=== PATIENT | male | born 1980 | race Caucasian/White ===

== ENCOUNTER 2024-12-12 19:13 | Emergency (ER) | payer SELFPAY ==
[2024-12-12 19:24] VITALS: BP 124/81; PULSE 88; RESP 16; TEMP 36.9; O2SAT 98; BMI 24.8
[2024-12-12 19:40] VITALS: BP 130/90; PULSE 87; O2SAT 94
--- NOTE | 2024-12-12 19:49 | ED_ITS ---
HPI - Eye Problem General: Chief complaint: Eye Problems Stated complaint: left eye lost bottom vision Time Seen by Provider: 12/12/24 19:31 Source: patient Mode of arrival: ambulatory Limitations: no limitations History of Present Illness: Patient is a 44-year-old male who presents the emergency department complaining of visual change gradually over the past couple of days but worsening today while working outside. Reports a history of retinal detachment in his right eye, notes that this seems to be similar. He notes that it seemed like a curtain was coming up over his left eye he has lost vision to the lower hemisphere. States that it feels like a glob is blocking his vision, however vision in the upper quadrants of his eye has remained unchanged. Denies any pain. Also reports a history of TIA when he was 17 years old, he is not reporting any other neurological symptoms at this time. No recent medication changes. No tearing or discharge from his eyes. No redness. He does note to me a history of bilateral cataract repair when he was in his 20s. MD chief complaint: vision change Onset (ago): day(s) Onset description: gradual Duration: constant and progressively worsening Location: left eye Eye Symptoms: decreased vision Mechanism: other (Occurred while exerting himself) Associated symptoms: Denies fever(s), headache(s), nausea, neck pain or vomiting Treatments Prior to Arrival: none Related Data Allergies Allergy/AdvReac Type Severity Reaction Status Date / Time No Known Allergies Allergy Verified 12/12/24 19:29 Review of Systems General: Reports: 10 or more systems reviewed and unremarkable except in HPI and below Const: Denies: fever(s), chills or fatigue Eyes: Reports: change in vision and blind spots; Denies: eye discomfort, eye discharge or eye redness ENMT: Denies: throat pain, ear or mastoid pain or nasal discharge Card: Denies: chest pain, palpitations, swelling of feet/ankles or lightheadedness Resp: Denies: dyspnea, productive cough or wheezing GI: Denies: abdominal pain, nausea, vomiting, diarrhea or constipation Musc: Denies: neck pain, back pain or joint pain Skin/Breast: Denies: rash Neuro: Denies: headache(s), numbness in extremities or weakness in extremities Physical Exam Const: COMMON NORMALS: no acute distress, patient oriented x3, no limitations and alert GENERAL APPEARANCE: cooperative ORIENTATION/CONSCIOUSNESS: Yes awake HENMT: COMMON NORMALS: normocephalic and atraumatic HEAD & SCALP: normocephalic and atraumatic Eye: COMMON NORMALS: Equal, round and reactive pupils present, EOMs intact bilaterally and conjunctivae normal GENERAL EYE: normal light reflex VISUAL M[place]: Yes visual field cut by quadrant Visual field cut by quadrant: lower outer visual field cut: left and lower inner visual field cut: left PERIORBITAL: periorbital findings normal EYELID: eyelids normal CONJUNCTIVA: Yes conjunctivae normal PUPIL: Yes Equal, round and reactive pupils present DIRECT OPHTHALMOSCOPY: Yes normal light reflex and Yes retinal abnormality positive left retinal detachment Resp: COMMON NORMALS: normal respiratory effort, No use of accessory muscles and clear to auscultation bilaterally AUSCULTATION: clear to auscultation bilaterally Cardio: COMMON NORMALS: regular rate, regular rhythm, S1 normal heart sound present and S2 normal heart sound present RATE: regular rate RHYTHM: regular rhythm HEART SOUNDS: S1 normal heart sound present and S2 normal heart sound present Extremity: COMMON NORMALS: normal to inspection and full ROM Neuro: COMMON NORMALS: patient oriented x3, CN's II-XII intact bilaterally, moves all extremities, no focal motor deficits and no sensory deficits noted SENSORIUM/ORIENTATION: Yes alert Course Vital Signs: Vital signs: Vital Signs Temperature 98.5 F 12/12/24 19:24 Pulse Rate 87 12/12/24 19:40 Respiratory Rate 16 12/12/24 19:24 Blood Pressure 130/90 12/12/24 19:40 Pulse Oximetry 94 12/12/24 19:40 Oxygen Delivery Me thod Room Air 12/12/24 19:40 MDM - Eye Problem Medical Decision Making Patient has had gradual vision loss in left eye, comparing it to symptoms from a previous retinal detachment in his right eye. Neurologically was intact on physical exam I have no concern for stroke. On ophthalmology, there was clear retinal detachment and this was confirmed with bedside ultrasound. Dr. Lewis had spoken with Dr. Vazquez, billing coordinator who had recommended consulting [facility] ophthalmology group. I spoke with Dr. Lagos, billing coordinator at [facility], who had stated they will see the patient tomorrow at 10 AM and to make the patient n.p.o. after midnight. Directions and number to call was provided to the patient who agrees with this plan. All of the questions and concerns addressed. Dr. Lewis assisted with care of this patient and agrees with the disposition. No radiology studies performed this visit Discharge Plan Discharge Patient Disposition: Home Clinical Impression: Retinal detachment Qualifiers: Laterality: left Qualified Code(s): H33.22 - Serous retinal detachment, left eye Condition: Stable Discharge Orders: Discharge ED (Routine); Ordered 12/12/24 Ordered By: Wilfred Christensen Patient Instructions: Retinal Detachment Activity Restrictions/Additional Instructions: You are going to follow-up for surgical appointment at [address] Martinez. This is located at [facility] in [place], [place]. The address is [address] [place] [address]. Please no intake of food or drink after midnight. Call for any other questions. 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
[2024-12-12 20:19] VITALS: BP 133/84; PULSE 74; O2SAT 93
== END 2024-12-12 20:20 | disposition home or self-care (01) ==
PROVIDERS: Emergency Provider Physician Assistant
DX: H33.22 Serous retinal detachment, left eye (principal)
CPT/HCPCS: 99281

== ENCOUNTER 2024-12-26 20:41 | Emergency (ER) | payer BC, MEDICAID, SELFPAY ==
[2024-12-26 20:44] VITALS: BP 155/101; PULSE 82; RESP 18; TEMP 36.6; O2SAT 96; BMI 24.4
[2024-12-26] MEDS: oxymetazoline 0.05% Nasal Spray 15 mL 2 SPRAY NOSTRIL-B (21:14)
[2024-12-26 21:33] LABS: Basophils # 0.1 10^3/uL (0.0-0.1); Basophils % 1.3 %; Eosinophils # 0.2 10^3/uL (0.0-0.8); Eosinophils % 2.8 %; Hematocrit 43.2 % (37-53); Lymphocytes % 38.1 %; Mean Corpuscular HGB Conc 35.9 g/dL (30-55); Mean Corpuscular Hemoglobin 34.1 pg (27-33); Mean Corpuscular Volume 94.9 fl (82-101); Mean Platelet Volume 9.1 fL (7.4-10.4); Monocytes # 0.9 10^3/uL (0.2-0.9); Monocytes % 11.1 %; Neutrophils # 3.61 10^3/uL (1.8-7.7); Neutrophils % 46.6 %; Nucleated Red Blood Cells % 0 %; Platelet Count 213 10^3/cmm (157-399); Red Blood Count 4.55 10^6/uL (3.85-5.65); Red Cell Distribution Width 11.7 % (12.1-15.1); White Blood Count 7.75 10^3/uL (3.29-11.43)
--- NOTE | 2024-12-26 21:33 | ED_ITS ---
HPI - Epistaxis 2 General: Chief complaint: Epistaxis Stated complaint: 3 Bad nose bleed in an hour feeling weak Time Seen by Provider: 12/26/24 20:52 Source: patient Mode of arrival: ambulatory Limitations: no limitations History of Present Illness: Patient is a 44-year-old male presents the emergency department planing of epistaxis today. Notes 3 separate episodes of profuse nasal bleeding, no history of bleeding. Recently underwent retinal detachment surgery in his left eye, no other pertinent context. States he is also felt weak today, normally is out climbing trees but has been sleeping all day. No chest pain, shortness of breath, or other symptoms at this time. No reported sick contact exposure to viral illness. Vitals within normal limits at this time. He is not on a blood thinner. No nasal trauma or head trauma reported. States that he is unsure what nostril was bleeding due to the profuse nature of this. Denies feeling blood running down the back of his throat. No active bleeding at this time. Mildly hypertensive, does not report a history and does not take medications. MD complaint: epistaxis Onset (ago): hour(s) Duration: now resolved Associated symptoms: Deny fever(s), headache(s) or vomiting Treatment prior to arrival: nose pinching and stuffed nose with tissue Related Data Allergies Allergy/AdvReac Type Severity Reaction Status Date / Time No Known Allergies Allergy Verified 12/12/24 19:29 Review of Systems 2 General: Reports: 10 or more systems reviewed and unremarkable except in HPI and below Const: Denies: fever(s), chills or fatigue Eyes: Denies: change in vision ENMT: Reports: epistaxis; Denies: throat pain, ear or mastoid pain or nasal discharge Card: Denies: chest pain, palpitations, swelling of feet/ankles or lightheadedness Resp: Denies: dyspnea, productive cough or wheezing GI: Denies: abdominal pain, nausea, vomiting, diarrhea or constipation : Denies: flank pain, difficulty urinating, dysuria or urinary frequency Musc: Reports: muscle weakness; Denies: neck pain, back pain or joint pain Skin/Breast: Denies: rash Neuro: Denies: headache(s), numbness in extremities or weakness in extremities Physical Exam 2 Const: COMMON NORMALS: no acute distress, patient oriented x3 and no limitations GENERAL APPEARANCE: cooperative, comfortable and well developed ORIENTATION/CONSCIOUSNESS: Yes awake, Yes oriented to person, Yes oriented to place and Yes oriented to time HENMT: COMMON NORMALS: normocephalic, atraumatic and hearing grossly normal bilaterally HEAD & SCALP: normocephalic and atraumatic NOSE: Epistaxis present on the left dried blood present OTHER: No active epistaxis at this time. Evaluation of posterior oropharynx does not reveal any signs of bleeding. Eye: COMMON NORMALS: Equal, round and reactive pupils present, EOMs intact bilaterally and conjunctivae normal CONJUNCTIVA: Yes conjunctivae normal P UPIL: Yes Equal, round and reactive pupils present Neck/C-Spine: COMMON NORMALS: full ROM, supple and no JVD Resp: COMMON NORMALS: normal respiratory effort, No retractions, No use of accessory muscles and clear to auscultation bilaterally AUSCULTATION: clear to auscultation bilaterally Cardio: COMMON NORMALS: no JVD, regular rate, regular rhythm, No clicks present (Cardio), No murmurs present (Cardio) and No rub (Cardio) RATE: r egular rate RHYTHM: regular rhythm Extremity: COMMON NORMALS: normal to inspection, full ROM and capillary refill normal Neuro: COMMON NORMALS: patient oriented x3, moves all extremities, no focal motor deficits and no sensory deficits noted SENSORIUM/ORIENTATION: Yes oriented to person, Yes oriented to place and Yes oriented to time Skin: COMMON NORMALS: no rashes or lesions noted GENERAL SKIN EXAM: no rashes or lesions noted Course 2 Vital Signs: Vital signs: Vital Signs Temperature 97.9 F 12/26/24 20:44 Pulse Rate 82 12/26/24 20:44 Respiratory Rate 18 12/26/24 20:44 Blood Pressure 155/101 12/26/24 20:44 Pulse Oximetry 96 12/26/24 20:44 Oxygen Delivery Me thod Room Air 12/26/24 20:44 MDM - Epistaxis Medical Decision Making Patient presented with epistaxis today, controlled on arrival. Mildly hypertensive, rest of vitals within normal limits. Rest of his physical exam normal he did complain of some weakness going on since today. His lab work was normal. No bleeding throughout his stay here in the ED, Afrin was administered. Etiology for the weakness include allergies versus viral versus dehydration. He is comfortable with discharge home, return precautions given. Lab Data 12/26/24 21:26 12/26/24 21: Laboratory Results WBC 7.75 10^3/uL (3.29-11.43) 12/26/24 21: RBC 4.55 10^6/uL (3.85-5.65) 12/26/24 21: Hgb 15.50 g/dL (11.27-16.99) 12/26/24 21: Hct 43.2 % (37-53) 12/26/24 21: MCV 94.9 fl (82-101) 12/26/24 21: MCH 34.1 pg (27-33) H 12/26/24 21: MCHC 35.9 g/dL (30-55) 12/26/24: RDW 11.7 % (12.1-15.1) L 12/26/24: Plt Count 213 10^3/cmm (157-399) 12/26/24: MPV 9.1 fL (7.4-10.4) 12/26/24 21: Neut % (Auto) 46.6 % 12/26/24: Lymph % (Auto) 38.1 % 12/26/24: [place] % (Auto) 11.1 % 12/26/24: Eos % (Auto) 2.8 % 12/26/24: Baso % (Auto) 1.3 % 12/26/24: Neut # (Auto) 3.61 10^3/uL (1.8-7.7) 12/26/24: Lymph # (Auto) 3.0 10^3/uL (0.8-4.8) 12/26/24: [place] # (Auto) 0.9 10^3/uL (0.2-0.9) 12/26/24: Eos # (Auto) 0.2 10^3/uL (0.0-0.8) 12/26/24: Baso # (Auto) 0.1 10^3/uL (0.0-0.1) 12/26/24: Nucleated RBC % (auto) 0 % 12/26/24: Nucleated RBCs # 0.0 /100WBC 12/26/24 21: PT 12.30 SECONDS (12.1-14.9) 12/26/24 21: INR 0.85 (0.8-1.2) 12/26/24 21: Sodium 141 mmol/L (136-145) 12/26/24 21: Potassium 3.4 mmol/L (3.5-5.1) L 12/26/24 21: Chloride 103 mmol/L (98-107) 12/26/24 21: Carbon Dioxide 24 mmol/L (22-29) 12/26/24 21: Anion Gap 17.4 (5-19) 12/26/24 21: BUN 8 mg/dL (6-20) 12/26/24: Creatinine 0.9 mg/dL (0.7-1.2) 12/26/24: GFR Calculation 92.1 mL/min (90-130) 12/26/24: Glucose 104 mg/dL (65-115) 12/26/24: Calculated Osmolality 291 mOsm/kg (285-295) 12/26/24 21: Calcium 9.2 mg/dL (8.5-10.5) 12/26/24 21: Total Bilirubin 0.3 mg/dL (0.15-1.2) 12/26/24 21: AST 35 U/L (0-40) 12/26/24 21: ALT 23 U/L (0-41) 12/26/24 21: Alkaline Phosphatase 92 U/L (40-130) 12/26/24: Total Protein 7.4 g/dL (6.6-8.7) 12/26/24 21: Albumin 4.2 g/dL (3.5-5.2) 12/26/24 21: Globulin 3.2 g/dL (1.3-4.6) 12/26/24 21: No radiology studies performed this visit Discharge Plan Discharge Patient Disposition: Home Clinical Impression: Epistaxis Condition: Stable Discharge Orders: Discharge ED (Routine); Ordered 12/26/24 Ordered By: Wilfred Christensen Patient Instructions: Nosebleed (ED) Activity Restrictions/Additional Instructions: Afrin for nosebleeds. Apply pinching at the bridge of the nose with any further bleeding. Drink plenty of water. [id number] antihistamines. Follow-up with primary care and return with any new or worsening. 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
[2024-12-26 21:50] LABS: Alanine Aminotransferase 23 U/L (0-41); Albumin Level 4.2 g/dL (3.5-5.2); Alkaline Phosphatase 92 U/L (40-130); Anion Gap 17.4 (5-19); Aspartate Amino Transferase 35 U/L (0-40); Blood Urea Nitrogen 8 mg/dL (6-20); Calcium 9.2 mg/dL (8.5-10.5); Carbon Dioxide 24 mmol/L (22-29); Chloride 103 mmol/L (98-107); Creatinine Clr Calc Pharmacy 118.5837; Globulin 3.2 g/dL (1.3-4.6); Glomerular Filtration Rate 92.1 mL/min (90-130); Glucose 104 mg/dL (65-115); INR 0.85 (0.8-1.2); Osmolality Calculated 291 mOsm/kg (285-295); Potassium 3.4 mmol/L (3.5-5.1); Sodium 141 mmol/L (136-145); Total Bilirubin 0.3 mg/dL (0.15-1.2); Total Protein 7.4 g/dL (6.6-8.7)
== END 2024-12-26 22:28 | disposition home or self-care (01) ==
PROVIDERS: Emergency Provider Physician Assistant
DX: R04.0 Epistaxis (principal)
CPT/HCPCS: 36415; 80053; 85025; 85610; 99283

== ENCOUNTER 2025-09-10 14:40 | Emergency (ER) | payer BC, MEDICAID, SELFPAY ==
[2025-09-10 14:44] VITALS: BP 171/115; PULSE 63; RESP 17; TEMP 36.7; O2SAT 100; BMI 24.4
--- NOTE | 2025-09-10 15:12 | CTR_ITS ---
PROCEDURE INFORMATION: Exam: CT Abdomen And Pelvis With Contrast Exam date and time: 09/10/2025 3:28 PM Age: 45 years old Clinical indication: Abdominal pain; Prior surgery; Surgery date: 6+ months; Surgery type: Gastric bypass; Additional info: Abd pain TECHNIQUE: Imaging protocol: Computed tomography of the abdomen and pelvis with contrast. Radiation optimization: All CT scans at this facility use at least one of these dose optimization techniques: automated exposure control; mA and/or kV adjustment per patient size (includes targeted exams where dose is matched to clinical indication); or iterative reconstruction. Contrast material: [id number]; Contrast volume: 100 ml; Contrast route: INTRAVENOUS (IV); COMPARISON: No relevant prior studies available. RADIATION DOSE METRICS: Total DLP (mGy-cm): 446.13 FINDINGS: Liver: Hepatic steatosis. Gallbladder and biliary ducts: Normal. No calcified stones. No ductal dilation. Pancreas: Normal. No ductal dilation. Spleen: Normal. No splenomegaly. Adrenal glands: Normal. No mass. Kidneys and ureters: Normal. No hydronephrosis. Stomach and bowel: Unremarkable. No obstruction. No mucosal thickening. Appendix: No evidence of appendicitis. Intraperitoneal space: Unremarkable. No free air. No significant fluid collection. Vasculature: Unremarkable. No abdominal aortic aneurysm. Lymph nodes: Unremarkable. No enlarged lymph nodes. Urinary bladder: Unremarkable as visualized. Reproductive: Unremarkable as visualized. Bones/joints: Unremarkable. No acute fracture. Soft tissues: Unremarkable. CT/CT abdomen pelvis w con* [id number] IMPRESSION: No acute findings.
--- NOTE | 2025-09-10 15:13 | ED_ITS ---
HPI - Abdominal Pain 2 General: Chief Complaint: Abdominal Pain Stated Complaint: n/v/d, abd feels hard, pain Time Seen by Provider: 09/10/25 15:09 Source: patient Mode of arrival: ambulatory Limitations: no limitations History of Present Illness: 45-year-old male states he has been havi ng vomiting along with abdominal pain in the mornings been going on for roughly a month. He states this morning his pain is worse in his epigastric he rates it a 6 out of 10 has had multiple episodes of vomiting. He denies any fevers denies any diarrhea denies any worse improving factors. Related Data Previous Rx's ?Medication ?Instructions ?Recorded ondansetron 4 mg disintegrating 4 mg PO Q6H PRN nausea and 09/10/25 tablet vomiting #14 tabs Allergies Allergy/AdvReac Type Severity Reaction Status Date / Time No Known Allergies Allergy Verified 12/12/24 19:29 Review of Systems 2 GI: Reports: abdominal pain Physical Exam 2 Const: COMMON NORMALS: no acute distress, patient oriented x3 and healthy appearing HENMT: COMMON NORMALS: normocephalic and atraumatic HEAD & SCALP: n ormocephalic and atraumatic Eye: COMMON NORMALS: conjunctivae normal CONJUNCTIVA: Yes conjunctivae normal Neck/C-Spine: COMMON NORMALS: full ROM and supple Chest: COMMONS NORMALS: normal inspection of the chest Resp: COMMON NORMALS: normal respiratory effort, No retractions, No use of accessory muscles and clear to auscultation bilaterally AUSCULTATION: clear to auscultation bilaterally Cardio: COMMON NORMALS: regular rate, regular rhythm and No murmurs present (Cardio) RATE: regular rate RHYTHM: regular rhythm GI: COMMON NORMALS: Normal to inspection, nondistended, normoactive bowel sounds present, Soft to palpation and no masses PALPATION: Yes Soft to palpation OTHER: epigastric tenderness Extremity: COMMON NORMALS: normal to inspection and full ROM Neuro: COMMON NORMALS: patient oriented x3, moves all extremities and no focal motor deficits Psych: COMMON NORMALS: mental status grossly normal, Normal thought process present and cooperative THOUGHT PROCESS: Normal thought process present Skin: COMMON NORMALS: no rashes or lesions noted and no wounds GENERAL SKIN EXAM: no rashes or lesions noted Course 2 Vital Signs: Vital signs: Vital Signs Temperature 98.0 F 09/10/25 14:44 Pulse Rate 56 L 09/10/25 16:00 Respiratory Rate 16 09/10/25 16:00 Blood Pressure 150/96 09/10/25 16:00 Pulse Oximetry 100 09/10/25 16:00 Oxygen Delivery Me thod Room Air 09/10/25 16:00 MDM - Abdominal Pain Medical Decision Making 45-year-old male presents with abdominal pain vomiting is going on for roughly a month. Differential includes appendicitis, small bowel obstruction, cholecystitis. Did review patient CT that showed no acute findings here. Lab work showed no significant abnormality as well. He is improved here after Zofran's been able to tolerate p.o. he has no abdominal pain at this time. This has been going on chronically will get him follow-up with a surgeon he stable for discharge will prescribe Zofran I did go over his findings with him along with plan he is return if worsening he understands and agrees Medical Records I reviewed the patient's medical records. Lab Data I reviewed the patient's lab results. 09/10/25 15:18 09/10/25 15:18 Labs/Radiology: Radiology Impressions Abdomen/Pelvis CT 09/10/25 15:12 IMPRESSION: No acute findings. Laboratory Results WBC 8.92 10^3/uL (3.29-11.43) 09/10/25 15:18 RBC 4.18 10^6/uL (3.85-5.65) 09/10/25 15:18 Hgb 15.20 g/dL (11.27-16.99) 09/10/25 15:18 Hct 42.1 % (37-53) 09/10/25 15:18 MCV 100.7 fl (82-101) 09/10/25 15:18 MCH 36.4 pg (27-33) H 09/10/25 15:18 MCHC 36.1 g/dL (30-55) 09/10/25 15:18 RDW 14.5 % (12.1-15.1) 09/10/25 15:18 Plt Count 149 10^3/cmm (157-399) L 09/10/25 15:18 MPV 10.0 fL (7.4-10.4) 09/10/25 15:18 Neut % (Auto) 71.3 % 09/10/25 15:18 Lymph % (Auto) 20.4 % 09/10/25 15:18 [place] % (Auto) 6.2 % 09/10/25 15:18 Eos % (Auto) 0.8 % 09/10/25 15:18 Baso % (Auto) 1.0 % 09/10/25 15:18 Neut # (Auto) 6.36 10^3/uL (1.8-7.7) 09/10/25 15:18 Lymph # (Auto) 1.8 10^3/uL (0.8-4.8) 09/10/25 15:18 [place] # (Auto) 0.6 10^3/uL (0.2-0.9) 09/10/25 15:18 Eos # (Auto) 0.1 10^3/uL (0.0-0.8) 09/10/25 15:18 Baso # (Auto) 0.1 10^3/uL (0.0-0.1) 09/10/25 15:18 Nucleated RBC % (auto) 0 % 09/10/25 15:18 Nucleated RBCs # 0.0 /100WBC 09/10/25 15:18 Sodium 132 mmol/L (136-145) L 09/10/25 15:18 Potassium 3.8 mmol/L (3.5-5.1) 09/10/25 15:18 Chloride 93 mmol/L (98-107) L 09/10/25 15:18 Carbon Dioxide 26 mmol/L (22-29) 09/10/25 15:18 Anion Gap 16.8 (5-19) 09/10/25 15:18 BUN 13 mg/dL (6-20) 09/10/25 15:18 Creatinine 1.0 mg/dL (0.7-1.2) 09/10/25 15:18 GFR Calculation 81.2 mL/min (90-130) L 09/10/25 15:18 Glucose 93 mg/dL (65-115) 09/10/25 15:18 Calculated Osmolality 274 mOsm/kg (285-295) L 09/10/25 15:18 Calcium 8.9 mg/dL (8.5-10.5) 09/10/25 15:18 Total Bilirubin 1.0 mg/dL (0.15-1.2) 09/10/25 15:18 ALT < 5 U/L (0-41) 09/10/25 15:18 Alkaline Phosphatase 108 U/L (40-130) 09/10/25 15:18 Total Protein 6.9 g/dL (6.6-8.7) 09/10/25 15:18 Albumin 3.8 g/dL (3.5-5.2) 09/10/25 15:18 Globulin 3.1 g/dL (1.3-4.6) 09/10/25 15:18 Lipase 26 U/L (13-60) 09/10/25 15:18 All radiology interpretation(s) finalized by discharge Discharge Plan Discharge Patient Disposition: Home Clinical Impression: Abdominal pain, Vomiting Condition: Stable Prescriptions: New ondansetron 4 mg tablet,disintegrating 4 mg PO Q6H PRN (Reason: nausea and vomiting) Qty: 14 0RF Discharge Orders: Discharge ED (Routine); Ordered 09/10/25 Ordered By: Iona Lewis Discharge Diet: Advance as tolerated Discharge Activity: Resume usual activity Patient Instructions: Acute Nausea and Vomiting (ED), Abdominal Pain (ED) Print Language: [place] Islander Coding Level of Care Code ED Ceramics Instructor for Pallavi Bennett
[2025-09-10 15:17] VITALS: RESP 16; O2SAT 100
[2025-09-10] MEDS: ondansetron 2 mg/ML SDV 2 mL 4 MG IVP (15:17)
[2025-09-10] MEDS: morphine 4 mg/mL SDV 1 mL IVP (15:17)
[2025-09-10 15:21] VITALS: BP 175/105; PULSE 53; O2SAT 100
[2025-09-10] MEDS: iohexol 350 mg/mL 500 mL Btl (per mL) IV (15:32)
[2025-09-10 16:00] VITALS: BP 150/96; PULSE 56; RESP 16; O2SAT 100
[2025-09-10 16:06] LABS: Hematocrit 42.1 % (37-53); Hemoglobin 15.20 g/dL (11.27-16.99); Mean Corpuscular Hemoglobin 36.4 pg (27-33); Mean Corpuscular Volume 100.7 fl (82-101); Nucleated Red Blood Cells % 0 %; Red Blood Count 4.18 10^6/uL (3.85-5.65); White Blood Count 8.92 10^3/uL (3.29-11.43)
[2025-09-10 16:07] LABS: Mean Corpuscular HGB Conc 36.1 g/dL (30-55); Platelet Count 149 10^3/cmm (157-399)
[2025-09-10 16:18] LABS: Albumin Level 3.8 g/dL (3.5-5.2); Alkaline Phosphatase 108 U/L (40-130); Blood Urea Nitrogen 13 mg/dL (6-20); Calcium 8.9 mg/dL (8.5-10.5); Carbon Dioxide 26 mmol/L (22-29); Chloride 93 mmol/L (98-107); Globulin 3.1 g/dL (1.3-4.6); Glucose 93 mg/dL (65-115); Lipase 26 U/L (13-60); Osmolality Calculated 274 mOsm/kg (285-295); Sodium 132 mmol/L (136-145); Total Protein 6.9 g/dL (6.6-8.7)
[2025-09-10 16:20] LABS: Anion Gap 16.8 (5-19); Potassium 3.8 mmol/L (3.5-5.1)
[2025-09-10 16:39] VITALS: BP 161/101; PULSE 57; O2SAT 99
[2025-09-10 17:04] LABS: Alanine Aminotransferase < 5 U/L (0-41)
[2025-09-10 17:05] LABS: Aspartate Amino Transferase 111 U/L (0-40)
== END 2025-09-10 16:40 | disposition home or self-care (01) ==
PROVIDERS: Emergency Provider Emergency Medicine
DX: R10.9 Unspecified abdominal pain (principal); R11.10 Vomiting, unspecified
CPT/HCPCS: 74177; 80053; 83690; 85025; 96374; 96375; 99285; J2270; J2405